=== PATIENT | male | born 1940 | race Caucasian/White ===

== ENCOUNTER → 2021-03-22 | Outpatient (CLI) | payer MEDICARE, SELFPAY | END | disposition home or self-care (01) | PROVIDERS: Visit Provider Family Medicine | DX: U07.1 COVID-19 (principal) | CPT/HCPCS: 87635; U0005; U0003 ==

== ENCOUNTER 2021-03-23 12:58 | Outpatient (CLI) | payer MEDICARE, SELFPAY ==
[2021-03-23] MEDS: 0.9% Saline Lock 10 ML Syringe IV (13:09)
[2021-03-23 13:12] VITALS: BP 117/56; PULSE 101; RESP 18; TEMP 36.7; O2SAT 97; BMI 22.9
[2021-03-23 13:50] VITALS: BP 109/51; PULSE 89; RESP 16; TEMP 37.7; O2SAT 98
[2021-03-23 14:50] VITALS: BP 114/48; PULSE 86; RESP 16; TEMP 37.6; O2SAT 99
== END 2021-03-23 15:00 | disposition home or self-care (01) ==
LOC: MS2OUT 13:01 → MS2 13:02
PROVIDERS: Referring Provider Nurse Practitioner Acute Care; Visit Provider Nurse Practitioner Acute Care
DX: Z23 Encounter for immunization (principal); U07.1 COVID-19
CPT/HCPCS: J7050; M0243; A4216; Q0244